=== PATIENT | male | born 1960 | race Caucasian/White ===

== ENCOUNTER → 2018-08-31 | Outpatient (CLI) | payer BC ==
[~2018-08-31] MED LIST: LOTRISONE 0.05%1 CRE TP; PREDNICOT20 MG PO
== END | disposition home or self-care (01) ==
LOC: US 07:30
DX: I65.23 Occlusion and stenosis of bilateral carotid arteries (principal); E11.9 Type 2 diabetes mellitus without complications; I10 Essential (primary) hypertension; F17.200 Nicotine dependence, unspecified, uncomplicated

== ENCOUNTER → 2023-12-01 | Outpatient (CLI) | payer BC | END | disposition home or self-care (01) | LOC: RAD 16:10 | PROVIDERS: ATTEND Internal Medicine | DX: M16.11 Unilateral primary osteoarthritis, right hip (principal); M77.8 Other enthesopathies, not elsewhere classified; M25.561 Pain in right knee ==